=== PATIENT | male | born 1995 | race African-American/Black ===

== ENCOUNTER 2018-10-02 19:47 | Emergency (ER) | payer SELFPAY ==
[~2018-10-02] VITALS: Ht 167.6 cm; Wt 56.7 kg
[2018-10-02] MEDS ORDERED: DEXAMETHASONE 4 MG TABLET PO ONE (20:15)
[2018-10-02 21:47] VITALS: BP 160/85
[2018-10-02] MEDS ORDERED: PRED20TA PO (21:55)
[2018-10-02] MEDS ORDERED: ORPH100T PO (21:55)
--- NOTE | 2018-10-02 21:55 | PHYS DOC ---
Past Medical History Past Medical History: Asthma Past Surgical History: No Surgical History Additional Information: Nonsmoker Alcohol Use: None Drug Use: None Adult General Chief Complaint Chief Complaint: CHEST PAIN HPI HPI 23 y/o male presents with report of left sided chest pain which started at patient's work this early AM at approximately 0230. Patient reports became work when he got home and laid down for bed at 0700. Reports the pain has continued throughout the day. Denies trauma. Denies leg swelling or calf tenderness. Reports worse with palpitation and deep inspiration. Denies cardiac risk factors. Denies hx of DVT/PE. Review of Systems Review of Systems Constitutional: Denies fever or chills [] Eyes: Denies change in visual acuity, redness, or eye pain [] HENT: Denies nasal congestion or sore throat [] Respiratory: Denies cough or shortness of breath [] Cardiovascular: Reports chest pain; denies palpitations GI: Denies abdominal pain, nausea, vomiting, or diarrhea [] : Denies dysuria or hematuria [] Musculoskeletal: Denies back pain or joint pain [] Integument: Denies rash or skin lesions [] Neurologic: Denies headache, focal weakness or sensory changes [] Complete systems were reviewed and found to be within normal limits, except as documented in this note. Current Medications Current Medications Current Medications Medications (Trade) Dose Ordered Sig/Babar Start Time Stop Time Status Last Admin Dose Admin Dexamethasone (Decadron) 10 mg 1X ONCE 10/02/18 20:15 10/02/18 20:16 DC 10/02/18 20:18 10 MG Allergies Allergies Allergies Coded Allergies Type Severity Reaction Last Updated Verified No Known Drug Allergies 10/02/18 No Physical Exam Physical Exam Constitutional: Well developed, well nourished, no acute distress, non-toxic appearance. [] HENT: Normocephalic, atraumatic Eyes: Conjunctiva normal, no discharge. [] Neck: Normal range of motion, no tenderness, supple Cardiovascular: Heart rate regular rhythm, no murmur, tenderness to palpitation of left chest- reproduces symptoms Lungs & Thorax: Bilateral breath sounds clear to auscultation [] Skin: Warm, dry, no erythema Extremities: No tenderness, ROM intact, no edema. [] Neurologic: Alert and oriented X 3, no focal deficits noted. [] Psychologic: Affect normal, judgement normal, mood normal. [] Current Patient Data Vital Signs EKG EKG @1956 NSR 79bpm, J point elevation, NO signs of ischemia, baseline artifact. Radiology/Procedures Radiology/Procedures PROCEDURE: CHEST PA & LATERAL PA and lateral chest. HISTORY: Chest pain PA and lateral views were taken of the chest. Lungs are clear. Heart is normal in size. There is hyperexpansion. There is no effusion. IMPRESSION: 1. No acute infiltrates. 2. Mild hyperexpansion. Electronically signed by: Phill Echavarria MD (10/03/2018 12:26 AM) [facility] Course & Med Decision Making Course & Med Decision Making Pertinent Labs and Imaging studies reviewed. (See chart for details) Patient presents with chest pain. Worse with palpation. No cardiac or PE risk factors. No clinical signs of DVT. EKG stable. CXR without acute process. Labs obtained and posted to chart. Troponin WNL.. PERC negative. HEART score 0. Symptomatic treatment provided. Patient stable for discharge home with outpatient follow-up with PCP. Discussed findings and plan with patient, who acknowledges understanding and agreement. Dragon Disclaimer Dragon Disclaimer This electronic medical record was generated, in whole or in part, using a voice recognition dictation system. Departure Departure Impression: Primary Impression: Chest wall pain Disposition: HOME, SELF-CARE Condition: STABLE Referrals: NO PCP (PCP) Patient Instructions: Chest Wall Pain, [id number] Scripts Orphenadrine Citrate (ORPHENADRINE CITRATE) 100 Mg Tablet.er 1 TAB PO BID PRN for MUSCLE PAIN, #14 TAB 0 Refills Prov: RODNEY WESTON DO 10/02/18 Prednisone (PREDNISONE) 20 Mg Tablet 2 TAB PO DAILY, #8 TAB Start tomorrow 10/03/18 Prov: RODNEY WESTON DO 10/02/18 RODNEY WESTON DO Oct 02, 2018 21:55
--- NOTE | 2018-10-03 00:31 | RAD ---
PA and lateral chest. HISTORY: Chest pain PA and lateral views were taken of the chest. Lungs are clear. Heart is normal in size. There is hyperexpansion. There is no effusion. IMPRESSION: 1. No acute infiltrates. 2. Mild hyperexpansion. Electronically signed by: Phill Echavarria MD (10/03/2018 12:26 AM) [facility]
--- NOTE | 2018-10-03 05:20 | EKG ---
[facility] [address] [place] [address] Test Date: 2018-10-02 Test Time: 19:56:01 Pat Name: REHANA ESTRELLA Department: Room: Gender: M Cleaning Custodian: : 1995 Requested By: ORDNEY WESTON Order Number: [id number] Reading MD: Barrett Castillo MD Measurements Intervals [place] Rate: 78 P: 42 DE: 156 QRS: 68 QRSD: 92 T: 65 QT: 362 QTc: 416 Interpretive Statements SINUS RHYTHM Electronically Signed On 10-03-2018 9:27:45 [employer] by Barrett Castillo MD
== END 2018-10-02 22:11 | disposition home or self-care (01) ==
LOC: ER 19:47
DX: R07.89 Other chest pain (principal); J45.909 Unspecified asthma, uncomplicated
CPT/HCPCS: 71046; 93005; 99283; J8540